=== PATIENT | male | born 1975 | race Hispanic/Latino ===

== ENCOUNTER 2020-09-03 11:26 | Inpatient (IN) | payer SELFPAY ==
[2020-09-03] MEDS ORDERED: Dexamethasone 10 MG/ML VIAL ONE (12:31)
[2020-09-03] MEDS ORDERED: Acetaminophen 325 MG TAB ONE (12:31)
[2020-09-03] MEDS ORDERED: Cefepime 2 GM VIAL ONE (12:31)
[2020-09-03 12:39] LABS: #Lymphocytes 0.3 thou/uL (1.20-3.40); #Monocytes 0.4 thou/uL (0.11-0.59); #Neutrophils 7.4 thou/uL (1.40-6.50); %Eosinophils 0.1 % (0.0-10.0); %Lymphocytes 4.2 % (21.0-51.0); %Monocytes 4.9 % (0.0-10.0); %Neutrophils 90.8 % (42.0-75.0); Hemoglobin 15.2 g/dL (14.0-18.0); Mean Corpuscular HGB CONC 33.7 g/dL (32.0-36.0); Mean Corpuscular Hemoglobin 28.9 pg (27.0-31.0); Mean Corpuscular Volume 85.8 fL (78.0-98.0); Mean Platelet Volume 8.9 fL (7.4-10.4); Platelet Count 170 thou/uL (130-400); RBC Distribution Width 12.4 % (11.5-14.5); Red Blood Cell (RBC) Count 5.27 mill/uL (4.70-6.10); White Blood Cell (WBC) Count 8.2 thou/uL (4.8-10.8)
[2020-09-03 12:56] LABS: Anion Gap 14 mmol/L (10-20); BUN (Urea Nitrogen) 6 mg/dL (8.9-20.6); Bilirubin, Total 0.8 mg/dL (0.2-1.2); Calc. Creatinine Clearance 0 mL/min (70-130); Calcium 8.3 mg/dL (7.8-10.44); Carbon Dioxide 23 mmol/L (22-29); Chloride 98 mmol/L (98-107); Glucose 127 mg/dL (70-105); Potassium 3.8 mmol/L (3.5-5.1); Protein, Total 7.2 g/dL (6.0-8.3); Sodium 131 mmol/L (136-145)
[2020-09-03 12:57] LABS: ALT (SGPT) 140 U/L (8-55); AST (SGOT) 185 U/L (5-34); Albumin 3.8 g/dL (3.5-5.0); Alkaline Phosphatase 93 U/L (40-110); Globulin 3.4 g/dL (2.4-3.5)
[2020-09-03] MEDS ORDERED: VANCOMYCIN 2 GRAM/400 ML BAG 2 GM in Premix Bag 1 BAG IVPB SCH (13:00)
[2020-09-03] MEDS ORDERED: Ondansetron ODT 4 MG TAB PO PRN (14:20)
[2020-09-03] MEDS ORDERED: Ondansetron PF 4 MG/2 ML Vial IVP PRN (14:20)
[2020-09-03] MEDS ORDERED: Acetaminophen 650 MG Suppository PR PRN (14:20)
[2020-09-03] MEDS ORDERED: Enoxaparin Sodium 40 MG/0.4 ML SYRINGE SC SCH (14:30)
[2020-09-03 14:41] LABS: CRP (Inflammatory) 12.11 mg/dL (= or < 0.5); Magnesium 1.9 mg/dL (1.6-2.6)
[2020-09-03 14:47] LABS: SARS-CoV-2 NAA Rapid Test DETECTED (NotDetected)
[2020-09-03] MEDS ORDERED: REMDESIVIR 200 MG in Sodium Chloride 0.9% 250 ML 210 ML IV SCH (16:00)
[2020-09-03] MEDS ORDERED: cefTRIAXone\\ROCEPHIN 1 GM in Sodium Chloride 0.9% 100 ML IVPB SCH (16:00)
[2020-09-03] MEDS ORDERED: Azithromycin 500 MG in Sodium Chloride 0.9% 250 ML 250 ML IVPB SCH (16:00)
[2020-09-03] MEDS ORDERED: Enoxaparin Sodium 40 MG/0.4 ML SYRINGE ONE (18:12)
[2020-09-03] MEDS ORDERED: cefTRIAXone\\ROCEPHIN 1 GM VIAL ONE (18:12)
[2020-09-03] MEDS ORDERED: Azithromycin 500 MG VIAL ONE (18:57)
[2020-09-03 20:01] LABS: Actual Bicarbonate (HCO3a) 19.8 mEq/L (22-28); Base Excess (BEa) -3.1 mEq/L (-2.0 to +3.0); CO2 Tension 30.3 mmHg (35.0-45.0); O2 Tension (PaO2), arterial 49.4 mmHg (80.0-100.0); pH, Arterial 7.43 (7.35-7.45)
[2020-09-03 20:02] LABS: Carboxyhemoglobin (COHb) 0.2 gm% (0.0-3.0); Hemoglobin (Hb) 15.2 g/dL (14.0-18.0)
[2020-09-03 20:03] LABS: ALV-art Gradient 112.365 mmHg (0-20); Analyzer IN Cardio ER; Calcium, Ionized (arterial) 1.09 mmol/L (1.12-1.30); Potassium - ABG Lab 4.04 mmol/L (3.70-5.30); Puncture Site LRA
[2020-09-04] MEDS ORDERED: Adenosine 6 MG/2 ML VIAL ONE (00:10)
[2020-09-04 06:50] LABS: Anion Gap 13 mmol/L (10-20); BUN (Urea Nitrogen) 12 mg/dL (8.9-20.6); Calc. Creatinine Clearance 0 mL/min (70-130); Calcium 8.3 mg/dL (7.8-10.44); Carbon Dioxide 20 mmol/L (22-29); Chloride 109 mmol/L (98-107); Glucose 137 mg/dL (70-105); Potassium 3.8 mmol/L (3.5-5.1); Sodium 138 mmol/L (136-145)
[2020-09-04 06:52] LABS: Band 6 % (5-11); Hemoglobin 14.5 g/dL (14.0-18.0); Lymphocytes 7 % (21-51); MDiff Complete? YES; Mean Corpuscular HGB CONC 34.4 g/dL (32.0-36.0); Mean Corpuscular Hemoglobin 29.8 pg (27.0-31.0); Mean Corpuscular Volume 86.4 fL (78.0-98.0); Mean Platelet Volume 8.5 fL (7.4-10.4); Monocytes 11 % (0-10); Neutrophil 76 % (42-75); Platelet Count 179 thou/uL (130-400); Platelet Morphology Comment Appears Adequate; RBC Distribution Width 12.4 % (11.5-14.5); RBC Morphology Normal; Red Blood Cell (RBC) Count 4.86 mill/uL (4.70-6.10); White Blood Cell (WBC) Count 5.3 thou/uL (4.8-10.8)
[2020-09-04] MEDS ORDERED: Enoxaparin Sodium 40 MG/0.4 ML SYRINGE SC SCH (09:00)
[2020-09-04] MEDS: Ascorbic Acid 500 mg Chewable Tablet PO SCH (09:46)
[2020-09-04] MEDS: Zinc Sulfate 220 MG CAP PO SCH (09:46)
[2020-09-04] MEDS: Dexamethasone 10 MG/ML VIAL SLOW IVP SCH (09:47)
[2020-09-04] MEDS: Guaifenesin DM 100-10/5 ML UDCUP PO PRN ×2 (09:49→21:29)
[2020-09-04 10:19] LABS: ALT (SGPT) 160 U/L (8-55); AST (SGOT) 184 U/L (5-34); Albumin 3.4 g/dL (3.5-5.0); Alkaline Phosphatase 83 U/L (40-110); Bilirubin, Direct 0.3 mg/dL (0.1-0.3); Bilirubin, Total 0.6 mg/dL (0.2-1.2); Protein, Total 6.5 g/dL (6.0-8.3)
[2020-09-04] MEDS ORDERED: TOCILIZUMAB IVPB PRN (11:08)
[2020-09-04] MEDS: REMDESIVIR 100 MG in Sodium Chloride 0.9% 250 ML 230 ML IV SCH (16:44)
[2020-09-04] MEDS: Enoxaparin Sodium 40 MG/0.4 ML SYRINGE SC SCH (21:29)
[2020-09-05] MEDS: Guaifenesin DM 100-10/5 ML UDCUP PO PRN ×3 (05:47→21:13)
[2020-09-05] MEDS ORDERED: Dexamethasone 10 MG/ML VIAL SLOW IVP SCH (09:31)
[2020-09-05] MEDS: Enoxaparin Sodium 40 MG/0.4 ML SYRINGE SC SCH ×2 (09:39→21:12)
[2020-09-05] MEDS: Zinc Sulfate 220 MG CAP PO SCH (09:40)
[2020-09-05] MEDS: Ascorbic Acid 500 mg Chewable Tablet PO SCH (09:40)
[2020-09-05] MEDS: Dexamethasone 4 mg/ml Vial SLOW IVP SCH (09:42)
[2020-09-05] MEDS: Dexamethasone 10 MG/ML VIAL SLOW IVP SCH (09:44)
[2020-09-05] MEDS: REMDESIVIR 100 MG in Sodium Chloride 0.9% 250 ML 230 ML IV SCH (16:35)
[2020-09-06] MEDS: Guaifenesin DM 100-10/5 ML UDCUP PO PRN ×2 (01:37→09:15)
[2020-09-06 04:06] LABS: #Lymphocytes 0.6 thou/uL (1.20-3.40); #Monocytes 0.8 thou/uL (0.11-0.59); #Neutrophils 10.2 thou/uL (1.40-6.50); %Basophils 0.2 % (0.0-1.0); %Eosinophils 0.1 % (0.0-10.0); %Lymphocytes 5.4 % (21.0-51.0); %Monocytes 7.1 % (0.0-10.0); %Neutrophils 87.2 % (42.0-75.0); Hemoglobin 14.2 g/dL (14.0-18.0); Mean Corpuscular HGB CONC 32.4 g/dL (32.0-36.0); Mean Corpuscular Hemoglobin 28.2 pg (27.0-31.0); Mean Corpuscular Volume 86.9 fL (78.0-98.0); Mean Platelet Volume 8.4 fL (7.4-10.4); Platelet Count 274 thou/uL (130-400); RBC Distribution Width 12.4 % (11.5-14.5); Red Blood Cell (RBC) Count 5.05 mill/uL (4.70-6.10); White Blood Cell (WBC) Count 11.7 thou/uL (4.8-10.8)
[2020-09-06 04:26] LABS: ALT (SGPT) 136 U/L (8-55); AST (SGOT) 77 U/L (5-34); Albumin 3.2 g/dL (3.5-5.0); Alkaline Phosphatase 72 U/L (40-110); Anion Gap 14 mmol/L (10-20); BUN (Urea Nitrogen) 20 mg/dL (8.9-20.6); Bilirubin, Total 0.7 mg/dL (0.2-1.2); CRP (Inflammatory) 2.77 mg/dL (= or < 0.5); Calc. Creatinine Clearance 167 mL/min (70-130); Calcium 7.9 mg/dL (7.8-10.44); Carbon Dioxide 19 mmol/L (22-29); Chloride 108 mmol/L (98-107); Globulin 2.8 g/dL (2.4-3.5); Glucose 127 mg/dL (70-105); Potassium 3.7 mmol/L (3.5-5.1); Sodium 137 mmol/L (136-145)
[2020-09-06] MEDS: Benzonatate 100 MG CAP PO PRN ×2 (05:16→20:26)
[2020-09-06] MEDS: Zinc Sulfate 220 MG CAP PO SCH (09:15)
[2020-09-06] MEDS: Ascorbic Acid 500 mg Chewable Tablet PO SCH (09:15)
[2020-09-06] MEDS: Enoxaparin Sodium 40 MG/0.4 ML SYRINGE SC SCH ×2 (09:15→20:26)
[2020-09-06] MEDS: Dexamethasone 4 mg/ml Vial SLOW IVP SCH (09:16)
[2020-09-06] MEDS: Morphine 2 MG/ML VIAL SLOW IVP PRN (14:40)
[2020-09-06] MEDS: REMDESIVIR 100 MG in Sodium Chloride 0.9% 250 ML 230 ML IV SCH (16:04)
[2020-09-06] MEDS: ALPRAZolam 0.25 MG TAB PO PRN (20:26)
[2020-09-06] MEDS: Famotidine 20 MG TAB PO SCH (20:26)
[2020-09-07] MEDS: Guaifenesin DM 100-10/5 ML UDCUP PO PRN (00:11)
[2020-09-07] MEDS: Morphine 2 MG/ML VIAL SLOW IVP PRN ×3 (00:11→15:55)
[2020-09-07] MEDS: Benzonatate 100 MG CAP PO PRN ×3 (03:34→21:30)
[2020-09-07] MEDS: Acetaminophen 325 MG TAB PO PRN (03:34)
[2020-09-07 03:39] LABS: Hemoglobin 14.9 g/dL (14.0-18.0); Mean Corpuscular HGB CONC 33.8 g/dL (32.0-36.0); Mean Corpuscular Hemoglobin 29.1 pg (27.0-31.0); Mean Platelet Volume 8.7 fL (7.4-10.4); Platelet Count 190 thou/uL (130-400); RBC Distribution Width 12.2 % (11.5-14.5); White Blood Cell (WBC) Count 13.2 thou/uL (4.8-10.8)
[2020-09-07 03:55] LABS: Band 1 % (5-11); Lymphocytes 3 % (21-51); MDiff Complete? YES; Monocytes 2 % (0-10); Neutrophil 94 % (42-75); Platelet Morphology Comment Appears Adequate
[2020-09-07 03:58] LABS: ALT (SGPT) 137 U/L (8-55); AST (SGOT) 63 U/L (5-34); Albumin 3.1 g/dL (3.5-5.0); Alkaline Phosphatase 75 U/L (40-110); Anion Gap 14 mmol/L (10-20); BUN (Urea Nitrogen) 17 mg/dL (8.9-20.6); Bilirubin, Total 0.8 mg/dL (0.2-1.2); CRP (Inflammatory) 4.26 mg/dL (= or < 0.5); Calc. Creatinine Clearance 177 mL/min (70-130); Calcium 7.9 mg/dL (7.8-10.44); Carbon Dioxide 17 mmol/L (22-29); Chloride 107 mmol/L (98-107); Glucose 88 mg/dL (70-105); Potassium 3.9 mmol/L (3.5-5.1); Protein, Total 6.1 g/dL (6.0-8.3); Sodium 134 mmol/L (136-145)
[2020-09-07 08:51] LABS: Actual Bicarbonate (HCO3v) 20 mEq/L (22-28); Base Excess -1.1 mEq/L (-2.0 to +3.0); Chloride (VBG) 105 mmol/L (98-106); Hemoglobin (Hb) 16.3 g/dL (13.2-17.3); Potassium (VBG) 3.44 mmol/L (3.70-5.30); Sodium 132.9 mmol/L (133-146); pH (venous) 7.51 (7.32-7.43)
[2020-09-07] MEDS: Zinc Sulfate 220 MG CAP PO SCH (08:52)
[2020-09-07] MEDS: Ascorbic Acid 500 mg Chewable Tablet PO SCH (08:52)
[2020-09-07] MEDS: Enoxaparin Sodium 40 MG/0.4 ML SYRINGE SC SCH ×2 (08:52→21:30)
[2020-09-07] MEDS: Famotidine 20 MG TAB PO SCH ×2 (08:52→21:30)
[2020-09-07 08:59] LABS: #Lymphocytes 0.9 thou/uL (1.20-3.40); #Monocytes 0.3 thou/uL (0.11-0.59); #Neutrophils 11.5 thou/uL (1.40-6.50); %Basophils 0.1 % (0.0-1.0); %Eosinophils 0.3 % (0.0-10.0); %Lymphocytes 7.2 % (21.0-51.0); %Monocytes 2.2 % (0.0-10.0); %Neutrophils 90.3 % (42.0-75.0); Mean Corpuscular HGB CONC 33.6 g/dL (32.0-36.0); Mean Corpuscular Hemoglobin 28.8 pg (27.0-31.0); Mean Corpuscular Volume 85.8 fL (78.0-98.0); Mean Platelet Volume 8.4 fL (7.4-10.4); Platelet Count 311 thou/uL (130-400); RBC Distribution Width 12.2 % (11.5-14.5); Red Blood Cell (RBC) Count 5.22 mill/uL (4.70-6.10); White Blood Cell (WBC) Count 12.7 thou/uL (4.8-10.8)
[2020-09-07] MEDS: Dexamethasone 4 MG TAB PO SCH (10:25)
[2020-09-07] MEDS: REMDESIVIR 100 MG in Sodium Chloride 0.9% 250 ML 230 ML IV SCH (15:55)
[2020-09-07] MEDS: ALPRAZolam 0.25 MG TAB PO PRN (21:30)
[2020-09-08 04:19] LABS: Band 5 % (5-11); Lymphocytes 11 % (21-51); MDiff Complete? YES; Mean Corpuscular HGB CONC 33.7 g/dL (32.0-36.0); Mean Corpuscular Volume 86.2 fL (78.0-98.0); Mean Platelet Volume 8.4 fL (7.4-10.4); Monocytes 6 % (0-10); Neutrophil 78 % (42-75); Platelet Count 299 thou/uL (130-400); Platelet Morphology Comment Appears Adequate; RBC Distribution Width 12.1 % (11.5-14.5); RBC Morphology Normal; Red Blood Cell (RBC) Count 4.82 mill/uL (4.70-6.10); White Blood Cell (WBC) Count 11.8 thou/uL (4.8-10.8)
[2020-09-08 04:20] LABS: ALT (SGPT) 102 U/L (8-55); AST (SGOT) 37 U/L (5-34); Albumin 3.1 g/dL (3.5-5.0); Alkaline Phosphatase 75 U/L (40-110); Anion Gap 13 mmol/L (10-20); BUN (Urea Nitrogen) 17 mg/dL (8.9-20.6); Bilirubin, Total 0.8 mg/dL (0.2-1.2); CRP (Inflammatory) 11.24 mg/dL (= or < 0.5); Calc. Creatinine Clearance 170 mL/min (70-130); Calcium 7.9 mg/dL (7.8-10.44); Carbon Dioxide 19 mmol/L (22-29); Chloride 106 mmol/L (98-107); Globulin 2.8 g/dL (2.4-3.5); Glucose 165 mg/dL (70-105); Protein, Total 5.9 g/dL (6.0-8.3); Sodium 134 mmol/L (136-145)
[2020-09-08] MEDS: Guaifenesin DM 100-10/5 ML UDCUP PO PRN (09:31)
[2020-09-08] MEDS: Dexamethasone 4 MG TAB PO SCH (09:31)
[2020-09-08] MEDS: Furosemide 20 MG/2 ML VIAL SLOW IVP SCH (09:31)
[2020-09-08] MEDS: Zinc Sulfate 220 MG CAP PO SCH (09:31)
[2020-09-08] MEDS: Famotidine 20 MG TAB PO SCH ×2 (09:32→20:56)
[2020-09-08] MEDS: Ascorbic Acid 500 mg Chewable Tablet PO SCH (09:32)
[2020-09-08] MEDS: Enoxaparin Sodium 40 MG/0.4 ML SYRINGE SC SCH ×2 (09:32→20:56)
[2020-09-08] MEDS: ALPRAZolam 0.25 MG TAB PO PRN (22:04)
[2020-09-08] MEDS: Morphine 2 MG/ML VIAL SLOW IVP PRN (22:30)
[2020-09-09 04:37] LABS: ALT (SGPT) 76 U/L (8-55); AST (SGOT) 23 U/L (5-34); Albumin 3.1 g/dL (3.5-5.0); Alkaline Phosphatase 72 U/L (40-110); Anion Gap 12 mmol/L (10-20); BUN (Urea Nitrogen) 19 mg/dL (8.9-20.6); Bilirubin, Total 0.7 mg/dL (0.2-1.2); CRP (Inflammatory) 5.68 mg/dL (= or < 0.5); Calc. Creatinine Clearance 161 mL/min (70-130); Calcium 8.2 mg/dL (7.8-10.44); Carbon Dioxide 22 mmol/L (22-29); Chloride 106 mmol/L (98-107); Globulin 2.8 g/dL (2.4-3.5); Glucose 165 mg/dL (70-105); Potassium 4.5 mmol/L (3.5-5.1); Protein, Total 5.9 g/dL (6.0-8.3); Sodium 135 mmol/L (136-145)
[2020-09-09 05:06] LABS: Hemoglobin 14.2 g/dL (14.0-18.0); Lymphocytes 5 % (21-51); MDiff Complete? YES; Mean Corpuscular HGB CONC 34.4 g/dL (32.0-36.0); Mean Corpuscular Hemoglobin 29.7 pg (27.0-31.0); Mean Corpuscular Volume 86.4 fL (78.0-98.0); Mean Platelet Volume 8.9 fL (7.4-10.4); Monocytes 5 % (0-10); Neutrophil 90 % (42-75); Platelet Count 323 thou/uL (130-400); Platelet Morphology Comment Appears Adequate; RBC Distribution Width 12.1 % (11.5-14.5); RBC Morphology Normal; Red Blood Cell (RBC) Count 4.77 mill/uL (4.70-6.10); White Blood Cell (WBC) Count 18.4 thou/uL (4.8-10.8)
[2020-09-09] MEDS: Dexamethasone 4 MG TAB PO SCH (08:46)
[2020-09-09] MEDS: Benzonatate 100 MG CAP PO PRN (08:46)
[2020-09-09] MEDS: Ascorbic Acid 500 mg Chewable Tablet PO SCH (08:46)
[2020-09-09] MEDS: Famotidine 20 MG TAB PO SCH ×2 (08:46→20:43)
[2020-09-09] MEDS: Zinc Sulfate 220 MG CAP PO SCH (08:46)
[2020-09-09] MEDS: Furosemide 20 MG/2 ML VIAL SLOW IVP SCH (08:47)
[2020-09-09] MEDS: Enoxaparin Sodium 40 MG/0.4 ML SYRINGE SC SCH ×2 (08:47→20:43)
[2020-09-09] MEDS ORDERED: Polyethylene Glycol 3350 17 GM Packet PO PRN (12:47)
[2020-09-09] MEDS: ALPRAZolam 0.25 MG TAB PO PRN (21:07)
[2020-09-09] MEDS: Morphine 2 MG/ML VIAL SLOW IVP PRN (23:20)
[2020-09-10 04:32] LABS: ALT (SGPT) 64 U/L (8-55); AST (SGOT) 20 U/L (5-34); Alkaline Phosphatase 75 U/L (40-110); Anion Gap 12 mmol/L (10-20); BUN (Urea Nitrogen) 21 mg/dL (8.9-20.6); Bilirubin, Total 0.7 mg/dL (0.2-1.2); Calc. Creatinine Clearance 154 mL/min (70-130); Calcium 8.1 mg/dL (7.8-10.44); Carbon Dioxide 22 mmol/L (22-29); Chloride 103 mmol/L (98-107); Globulin 2.9 g/dL (2.4-3.5); Glucose 159 mg/dL (70-105); Potassium 4.4 mmol/L (3.5-5.1); Protein, Total 5.9 g/dL (6.0-8.3); Sodium 133 mmol/L (136-145)
[2020-09-10 04:40] LABS: Hemoglobin 14.7 g/dL (14.0-18.0); Mean Corpuscular HGB CONC 34.4 g/dL (32.0-36.0); Mean Corpuscular Hemoglobin 29.9 pg (27.0-31.0); Mean Corpuscular Volume 86.7 fL (78.0-98.0); Mean Platelet Volume 8.9 fL (7.4-10.4); Platelet Count 359 thou/uL (130-400); RBC Distribution Width 12.2 % (11.5-14.5); Red Blood Cell (RBC) Count 4.92 mill/uL (4.70-6.10); White Blood Cell (WBC) Count 19.2 thou/uL (4.8-10.8)
[2020-09-10 05:30] LABS: Band 9 % (5-11); Lymphocytes 6 % (21-51); MDiff Complete? YES; Monocytes 5 % (0-10); Neutrophil 80 % (42-75)
[2020-09-10] MEDS: Ascorbic Acid 500 mg Chewable Tablet PO SCH (08:41)
[2020-09-10] MEDS: Enoxaparin Sodium 40 MG/0.4 ML SYRINGE SC SCH ×2 (08:42→20:39)
[2020-09-10] MEDS: Furosemide 20 MG/2 ML VIAL SLOW IVP SCH (08:42)
[2020-09-10] MEDS: Dexamethasone 4 MG TAB PO SCH (08:42)
[2020-09-10] MEDS: Zinc Sulfate 220 MG CAP PO SCH (08:42)
[2020-09-10] MEDS: Famotidine 20 MG TAB PO SCH ×2 (08:42→20:39)
[2020-09-11 04:04] LABS: #Lymphocytes 0.8 thou/uL (1.20-3.40); #Monocytes 1.4 thou/uL (0.11-0.59); #Neutrophils 15.7 thou/uL (1.40-6.50); %Basophils 0.1 % (0.0-1.0); %Eosinophils 0.2 % (0.0-10.0); %Lymphocytes 4.2 % (21.0-51.0); %Neutrophils 87.5 % (42.0-75.0); Hemoglobin 15.1 g/dL (14.0-18.0); Mean Corpuscular HGB CONC 33.6 g/dL (32.0-36.0); Mean Corpuscular Hemoglobin 29.1 pg (27.0-31.0); Mean Corpuscular Volume 86.6 fL (78.0-98.0); Mean Platelet Volume 8.4 fL (7.4-10.4); Platelet Count 358 thou/uL (130-400); RBC Distribution Width 12.3 % (11.5-14.5); Red Blood Cell (RBC) Count 5.18 mill/uL (4.70-6.10)
[2020-09-11 04:28] LABS: ALT (SGPT) 76 U/L (8-55); AST (SGOT) 29 U/L (5-34); Albumin 3.1 g/dL (3.5-5.0); Alkaline Phosphatase 74 U/L (40-110); Anion Gap 11 mmol/L (10-20); BUN (Urea Nitrogen) 21 mg/dL (8.9-20.6); Bilirubin, Total 0.8 mg/dL (0.2-1.2); Calc. Creatinine Clearance 163 mL/min (70-130); Calcium 8.1 mg/dL (7.8-10.44); Carbon Dioxide 20 mmol/L (22-29); Chloride 104 mmol/L (98-107); Globulin 2.8 g/dL (2.4-3.5); Glucose 138 mg/dL (70-105); Potassium 4.3 mmol/L (3.5-5.1); Protein, Total 5.9 g/dL (6.0-8.3); Sodium 131 mmol/L (136-145)
[2020-09-11] MEDS: Zinc Sulfate 220 MG CAP PO SCH (09:43)
[2020-09-11] MEDS: Enoxaparin Sodium 40 MG/0.4 ML SYRINGE SC SCH ×2 (09:43→20:43)
[2020-09-11] MEDS: Famotidine 20 MG TAB PO SCH ×2 (09:44→20:43)
[2020-09-11] MEDS: Ascorbic Acid 500 mg Chewable Tablet PO SCH (09:44)
[2020-09-11] MEDS: Dexamethasone 4 MG TAB PO SCH (09:44)
[2020-09-12] MEDS: Ascorbic Acid 500 mg Chewable Tablet PO SCH (08:00)
[2020-09-12] MEDS: Famotidine 20 MG TAB PO SCH ×2 (08:01→20:39)
[2020-09-12] MEDS: Zinc Sulfate 220 MG CAP PO SCH (08:01)
[2020-09-12] MEDS: Enoxaparin Sodium 40 MG/0.4 ML SYRINGE SC SCH ×2 (08:01→20:39)
[2020-09-12] MEDS: Dexamethasone 4 MG TAB PO SCH (08:01)
[2020-09-12 09:59] LABS: Band 8 % (5-11); Hemoglobin 16.7 g/dL (14.0-18.0); Lymphocytes 4 % (21-51); MDiff Complete? YES; Mean Corpuscular HGB CONC 34.5 g/dL (32.0-36.0); Mean Corpuscular Hemoglobin 29.9 pg (27.0-31.0); Mean Corpuscular Volume 86.8 fL (78.0-98.0); Mean Platelet Volume 8.8 fL (7.4-10.4); Metamyelocyte 2 % (0-0); Monocytes 8 % (0-10); Neutrophil 78 % (42-75); Platelet Count 336 thou/uL (130-400); RBC Distribution Width 12.4 % (11.5-14.5); Red Blood Cell (RBC) Count 5.57 mill/uL (4.70-6.10); White Blood Cell (WBC) Count 23.5 thou/uL (4.8-10.8)
[2020-09-13] MEDS: Benzonatate 100 MG CAP PO PRN ×2 (04:51→21:35)
[2020-09-13 08:06] LABS: Band 2 % (5-11); Hemoglobin 15.9 g/dL (14.0-18.0); Lymphocytes 10 % (21-51); MDiff Complete? YES; Mean Corpuscular HGB CONC 33.9 g/dL (32.0-36.0); Mean Corpuscular Hemoglobin 29.4 pg (27.0-31.0); Mean Corpuscular Volume 86.7 fL (78.0-98.0); Mean Platelet Volume 8.8 fL (7.4-10.4); Monocytes 3 % (0-10); Neutrophil 84 % (42-75); Platelet Count 321 thou/uL (130-400); RBC Distribution Width 12.4 % (11.5-14.5); RBC Morphology Normal; Reactive Lymphocytes 1 % (0-10); Red Blood Cell (RBC) Count 5.41 mill/uL (4.70-6.10); White Blood Cell (WBC) Count 22.8 thou/uL (4.8-10.8)
[2020-09-13] MEDS: Dexamethasone 4 MG TAB PO SCH (08:18)
[2020-09-13] MEDS: Zinc Sulfate 220 MG CAP PO SCH (08:18)
[2020-09-13] MEDS: Famotidine 20 MG TAB PO SCH ×2 (08:19→21:35)
[2020-09-13] MEDS: Ascorbic Acid 500 mg Chewable Tablet PO SCH (08:19)
[2020-09-13] MEDS: Enoxaparin Sodium 40 MG/0.4 ML SYRINGE SC SCH ×2 (08:19→21:35)
[2020-09-13] MEDS: Guaifenesin DM 100-10/5 ML UDCUP PO PRN ×2 (08:25→21:35)
[2020-09-13 08:52] LABS: Hemoglobin 16.4 g/dL (14.0-18.0); Mean Corpuscular HGB CONC 33.2 g/dL (32.0-36.0); Mean Corpuscular Hemoglobin 29.1 pg (27.0-31.0); Mean Corpuscular Volume 87.6 fL (78.0-98.0); Mean Platelet Volume 8.7 fL (7.4-10.4); Platelet Count 309 thou/uL (130-400); RBC Distribution Width 12.4 % (11.5-14.5); Red Blood Cell (RBC) Count 5.64 mill/uL (4.70-6.10)
[2020-09-13 09:03] LABS: Anion Gap 11 mmol/L (10-20); BUN (Urea Nitrogen) 17 mg/dL (8.9-20.6); CRP (Inflammatory) Less than 0.50 mg/dL (= or < 0.5); Calc. Creatinine Clearance 147 mL/min (70-130); Calcium 8.4 mg/dL (7.8-10.44); Carbon Dioxide 21 mmol/L (22-29); Chloride 103 mmol/L (98-107); Glucose 88 mg/dL (70-105); Magnesium 2.4 mg/dL (1.6-2.6); Potassium 4.3 mmol/L (3.5-5.1); Sodium 131 mmol/L (136-145)
[2020-09-13 13:31] LABS: Band 3 % (5-11); Lymphocytes 4 % (21-51); Metamyelocyte 1 % (0-0); Monocytes 1 % (0-10); Neutrophil 86 % (42-75); Platelet Morphology Comment Appears Adequate; Reactive Lymphocytes 5 % (0-10)
[2020-09-13 13:32] LABS: MDiff Complete? YES; RBC Morphology Normal
[2020-09-13] MEDS ORDERED: Cholecalciferol (Vitamin D3) 400 UNITS TAB PO SCH ×2 (13:34→13:45)
[2020-09-13] MEDS: Acetaminophen 325 MG TAB PO PRN (21:39)
[2020-09-14 05:50] LABS: #Eosinphils 0.1 thou/uL (0.0-0.7); #Lymphocytes 1.2 thou/uL (1.20-3.40); #Monocytes 1.9 thou/uL (0.11-0.59); #Neutrophils 21.4 thou/uL (1.40-6.50); %Basophils 0.1 % (0.0-1.0); %Eosinophils 0.3 % (0.0-10.0); %Lymphocytes 4.8 % (21.0-51.0); %Monocytes 7.7 % (0.0-10.0); %Neutrophils 87.1 % (42.0-75.0); Hemoglobin 15.7 g/dL (14.0-18.0); Mean Corpuscular HGB CONC 32.8 g/dL (32.0-36.0); Mean Corpuscular Hemoglobin 28.7 pg (27.0-31.0); Mean Corpuscular Volume 87.6 fL (78.0-98.0); Mean Platelet Volume 8.7 fL (7.4-10.4); Platelet Count 294 thou/uL (130-400); RBC Distribution Width 12.5 % (11.5-14.5); Red Blood Cell (RBC) Count 5.47 mill/uL (4.70-6.10); White Blood Cell (WBC) Count 24.5 thou/uL (4.8-10.8)
[2020-09-14] MEDS: Famotidine 20 MG TAB PO SCH ×2 (08:29→21:45)
[2020-09-14] MEDS: Ascorbic Acid 500 mg Chewable Tablet PO SCH (08:29)
[2020-09-14] MEDS: Dexamethasone 4 MG TAB PO SCH (08:29)
[2020-09-14] MEDS: Cholecalciferol (Vitamin D3) 400 UNITS TAB PO SCH (08:29)
[2020-09-14] MEDS: Zinc Sulfate 220 MG CAP PO SCH (08:30)
[2020-09-14] MEDS: Enoxaparin Sodium 40 MG/0.4 ML SYRINGE SC SCH ×2 (08:30→21:45)
[2020-09-14] MEDS: Benzonatate 100 MG CAP PO PRN (21:45)
[2020-09-14] MEDS: Guaifenesin DM 100-10/5 ML UDCUP PO PRN (21:45)
[2020-09-14] MEDS: Acetaminophen 325 MG TAB PO PRN (21:45)
[2020-09-15 06:37] LABS: #Basophils 0.1 thou/uL (0.0-0.2); #Eosinphils 0.1 thou/uL (0.0-0.7); #Lymphocytes 1.4 thou/uL (1.20-3.40); #Monocytes 1.8 thou/uL (0.11-0.59); #Neutrophils 21.9 thou/uL (1.40-6.50); %Basophils 0.4 % (0.0-1.0); %Eosinophils 0.4 % (0.0-10.0); %Lymphocytes 5.4 % (21.0-51.0); %Monocytes 7.1 % (0.0-10.0); %Neutrophils 86.8 % (42.0-75.0); Hemoglobin 15.5 g/dL (14.0-18.0); Mean Corpuscular HGB CONC 32.7 g/dL (32.0-36.0); Mean Corpuscular Hemoglobin 28.5 pg (27.0-31.0); Mean Corpuscular Volume 87.3 fL (78.0-98.0); Mean Platelet Volume 8.6 fL (7.4-10.4); Platelet Count 257 thou/uL (130-400); RBC Distribution Width 12.6 % (11.5-14.5); Red Blood Cell (RBC) Count 5.45 mill/uL (4.70-6.10); White Blood Cell (WBC) Count 25.3 thou/uL (4.8-10.8)
[2020-09-15] MEDS: Dexamethasone 4 MG TAB PO SCH (08:37)
[2020-09-15] MEDS: Cholecalciferol (Vitamin D3) 400 UNITS TAB PO SCH (08:37)
[2020-09-15] MEDS: Benzonatate 100 MG CAP PO PRN ×2 (08:37→22:02)
[2020-09-15] MEDS: Zinc Sulfate 220 MG CAP PO SCH (08:38)
[2020-09-15] MEDS: Ascorbic Acid 500 mg Chewable Tablet PO SCH (08:38)
[2020-09-15] MEDS: Famotidine 20 MG TAB PO SCH ×2 (08:38→22:02)
[2020-09-15] MEDS: Enoxaparin Sodium 40 MG/0.4 ML SYRINGE SC SCH ×2 (08:38→22:02)
[2020-09-15] MEDS: Guaifenesin DM 100-10/5 ML UDCUP PO PRN (22:02)
[2020-09-15] MEDS: Acetaminophen 325 MG TAB PO PRN (22:02)
[2020-09-16 06:47] LABS: ALT (SGPT) 101 U/L (8-55); AST (SGOT) 19 U/L (5-34); Albumin 3.3 g/dL (3.5-5.0); Alkaline Phosphatase 79 U/L (40-110); Anion Gap 11 mmol/L (10-20); BUN (Urea Nitrogen) 20 mg/dL (8.9-20.6); Bilirubin, Total 0.6 mg/dL (0.2-1.2); Calc. Creatinine Clearance 0 mL/min (70-130); Calcium 8.2 mg/dL (7.8-10.44); Carbon Dioxide 26 mmol/L (22-29); Chloride 100 mmol/L (98-107); Globulin 2.5 g/dL (2.4-3.5); Glucose 107 mg/dL (70-105); Potassium 4.7 mmol/L (3.5-5.1); Protein, Total 5.8 g/dL (6.0-8.3); Sodium 132 mmol/L (136-145)
[2020-09-16] MEDS: Zinc Sulfate 220 MG CAP PO SCH (08:12)
[2020-09-16] MEDS: Famotidine 20 MG TAB PO SCH ×2 (08:12→19:51)
[2020-09-16] MEDS: Cholecalciferol (Vitamin D3) 400 UNITS TAB PO SCH (08:12)
[2020-09-16] MEDS: Ascorbic Acid 500 mg Chewable Tablet PO SCH (08:12)
[2020-09-16] MEDS: Dexamethasone 4 MG TAB PO SCH (08:13)
[2020-09-16] MEDS: Enoxaparin Sodium 40 MG/0.4 ML SYRINGE SC SCH ×2 (08:13→19:51)
[2020-09-16 10:14] LABS: Band 2 % (5-11); Hemoglobin 15.9 g/dL (14.0-18.0); Lymphocytes 4 % (21-51); MDiff Complete? YES; Mean Corpuscular HGB CONC 32.8 g/dL (32.0-36.0); Mean Corpuscular Hemoglobin 29.1 pg (27.0-31.0); Mean Corpuscular Volume 88.5 fL (78.0-98.0); Monocytes 6 % (0-10); Neutrophil 88 % (42-75); Platelet Count 257 thou/uL (130-400); Platelet Morphology Comment Appears Adequate; RBC Distribution Width 12.6 % (11.5-14.5); RBC Morphology Normal; Red Blood Cell (RBC) Count 5.48 mill/uL (4.70-6.10); White Blood Cell (WBC) Count 22.7 thou/uL (4.8-10.8)
[2020-09-16] MEDS: Guaifenesin DM 100-10/5 ML UDCUP PO PRN (19:52)
[2020-09-16] MEDS: Acetaminophen 325 MG TAB PO PRN (19:52)
[2020-09-17] MEDS: Guaifenesin DM 100-10/5 ML UDCUP PO PRN (05:15)
[2020-09-17] MEDS: Ascorbic Acid 500 mg Chewable Tablet PO SCH (08:12)
[2020-09-17] MEDS: Famotidine 20 MG TAB PO SCH ×2 (08:12→20:02)
[2020-09-17] MEDS: Cholecalciferol (Vitamin D3) 400 UNITS TAB PO SCH (08:12)
[2020-09-17] MEDS: Enoxaparin Sodium 40 MG/0.4 ML SYRINGE SC SCH ×2 (08:13→20:02)
[2020-09-17] MEDS: Zinc Sulfate 220 MG CAP PO SCH (08:13)
[2020-09-17] MEDS: Dexamethasone 4 MG TAB PO SCH (08:13)
[2020-09-18 04:37] LABS: Band 3 % (5-11); Hemoglobin 15.6 g/dL (14.0-18.0); Lymphocytes 11 % (21-51); MDiff Complete? YES; Mean Corpuscular HGB CONC 33.6 g/dL (32.0-36.0); Mean Corpuscular Hemoglobin 29.4 pg (27.0-31.0); Mean Corpuscular Volume 87.5 fL (78.0-98.0); Mean Platelet Volume 8.7 fL (7.4-10.4); Monocytes 3 % (0-10); Neutrophil 83 % (42-75); Platelet Count 240 thou/uL (130-400); Platelet Morphology Comment Appears Adequate; RBC Distribution Width 12.6 % (11.5-14.5); Red Blood Cell (RBC) Count 5.29 mill/uL (4.70-6.10); White Blood Cell (WBC) Count 21.1 thou/uL (4.8-10.8)
[2020-09-18] MEDS: Cholecalciferol (Vitamin D3) 400 UNITS TAB PO SCH (07:39)
[2020-09-18] MEDS: Enoxaparin Sodium 40 MG/0.4 ML SYRINGE SC SCH ×2 (07:39→21:01)
[2020-09-18] MEDS: Zinc Sulfate 220 MG CAP PO SCH (07:40)
[2020-09-18] MEDS: Famotidine 20 MG TAB PO SCH ×2 (07:40→21:02)
[2020-09-18] MEDS: Dexamethasone 4 MG TAB PO SCH (07:40)
[2020-09-18] MEDS: Ascorbic Acid 500 mg Chewable Tablet PO SCH (07:40)
[2020-09-18] MEDS ORDERED: Dexamethasone 4 MG TAB PO SCH ×2 (13:41→13:45)
[2020-09-19 04:14] LABS: Band 1 % (5-11); Lymphocytes 19 % (21-51); MDiff Complete? YES; Mean Corpuscular HGB CONC 33.5 g/dL (32.0-36.0); Mean Corpuscular Hemoglobin 29.1 pg (27.0-31.0); Mean Corpuscular Volume 86.9 fL (78.0-98.0); Mean Platelet Volume 8.7 fL (7.4-10.4); Monocytes 9 % (0-10); Neutrophil 67 % (42-75); Platelet Count 213 thou/uL (130-400); Platelet Morphology Comment Appears Adequate; RBC Distribution Width 12.8 % (11.5-14.5); RBC Morphology Normal; Reactive Lymphocytes 4 % (0-10); Red Blood Cell (RBC) Count 5.16 mill/uL (4.70-6.10); White Blood Cell (WBC) Count 16.4 thou/uL (4.8-10.8)
[2020-09-19] MEDS: Ascorbic Acid 500 mg Chewable Tablet PO SCH (07:22)
[2020-09-19] MEDS: Zinc Sulfate 220 MG CAP PO SCH (07:22)
[2020-09-19] MEDS: Dexamethasone 4 MG TAB PO SCH (07:22)
[2020-09-19] MEDS: Famotidine 20 MG TAB PO SCH ×2 (07:22→21:45)
[2020-09-19] MEDS: Enoxaparin Sodium 40 MG/0.4 ML SYRINGE SC SCH ×2 (07:22→21:45)
[2020-09-19] MEDS: Cholecalciferol (Vitamin D3) 400 UNITS TAB PO SCH (07:22)
[2020-09-20] MEDS: Cholecalciferol (Vitamin D3) 400 UNITS TAB PO SCH (08:49)
[2020-09-20] MEDS: Dexamethasone 4 MG TAB PO SCH (08:49)
[2020-09-20] MEDS: Famotidine 20 MG TAB PO SCH ×2 (08:49→21:00)
[2020-09-20] MEDS: Enoxaparin Sodium 40 MG/0.4 ML SYRINGE SC SCH ×2 (08:50→21:00)
[2020-09-20] MEDS: Zinc Sulfate 220 MG CAP PO SCH (08:50)
[2020-09-20] MEDS: Ascorbic Acid 500 mg Chewable Tablet PO SCH (08:50)
[2020-09-20] MEDS: Acetaminophen 325 MG TAB PO PRN (09:21)
[2020-09-20] MEDS: Bisacodyl 5 MG TAB PO PRN (09:24)
[2020-09-20] MEDS ORDERED: Dexamethasone 4 MG TAB PO SCH (10:45)
[2020-09-20] MEDS ORDERED: Enoxaparin Sodium 40 MG/0.4 ML SYRINGE ONE (20:48)
[2020-09-20] MEDS ORDERED: Famotidine 20 MG TAB ONE (20:48)
[2020-09-20] MEDS ORDERED: Melatonin 3 MG TAB ONE (20:49)
[2020-09-20] MEDS ORDERED: Melatonin 3 MG TAB PO SCH (22:15)
[2020-09-21 04:16] VITALS: BMI 28.5
[2020-09-21] MEDS: Dexamethasone 4 MG TAB PO SCH (08:54)
[2020-09-21] MEDS: Ascorbic Acid 500 mg Chewable Tablet PO SCH (08:56)
[2020-09-21] MEDS: Cholecalciferol (Vitamin D3) 400 UNITS TAB PO SCH (08:57)
[2020-09-21] MEDS: Enoxaparin Sodium 40 MG/0.4 ML SYRINGE SC SCH ×2 (08:57→21:12)
[2020-09-21] MEDS: Famotidine 20 MG TAB PO SCH ×2 (08:57→21:11)
[2020-09-21] MEDS: Zinc Sulfate 220 MG CAP PO SCH (08:57)
[2020-09-21 09:28] LABS: #Basophils 0.1 thou/uL (0.0-0.2); #Eosinphils 0.1 thou/uL (0.0-0.7); #Lymphocytes 1.9 thou/uL (1.20-3.40); #Monocytes 1.3 thou/uL (0.11-0.59); %Basophils 0.8 % (0.0-1.0); %Eosinophils 0.5 % (0.0-10.0); %Monocytes 7.3 % (0.0-10.0); %Neutrophils 80.4 % (42.0-75.0); Hemoglobin 16.3 g/dL (14.0-18.0); Mean Corpuscular HGB CONC 34.4 g/dL (32.0-36.0); Mean Corpuscular Hemoglobin 30.4 pg (27.0-31.0); Mean Corpuscular Volume 88.4 fL (78.0-98.0); Mean Platelet Volume 8.7 fL (7.4-10.4); Platelet Count 205 thou/uL (130-400); RBC Distribution Width 12.8 % (11.5-14.5); Red Blood Cell (RBC) Count 5.35 mill/uL (4.70-6.10); White Blood Cell (WBC) Count 17.4 thou/uL (4.8-10.8)
[2020-09-21] MEDS: Bisacodyl 5 MG TAB PO PRN (16:53)
[2020-09-21] MEDS: Melatonin 3 MG TAB PO SCH (21:11)
[2020-09-22] MEDS: Ascorbic Acid 500 mg Chewable Tablet PO SCH (08:34)
[2020-09-22] MEDS: Dexamethasone 4 MG TAB PO SCH ×2 (08:34→12:19)
[2020-09-22] MEDS: Cholecalciferol (Vitamin D3) 400 UNITS TAB PO SCH (08:34)
[2020-09-22] MEDS: Famotidine 20 MG TAB PO SCH ×2 (08:35→21:17)
[2020-09-22] MEDS: Enoxaparin Sodium 40 MG/0.4 ML SYRINGE SC SCH ×2 (08:35→21:17)
[2020-09-22] MEDS: Zinc Sulfate 220 MG CAP PO SCH (08:35)
[2020-09-22] MEDS: Bisacodyl 5 MG TAB PO PRN (09:59)
[2020-09-22] MEDS: Melatonin 3 MG TAB PO SCH (21:17)
[2020-09-23] MEDS: Famotidine 20 MG TAB PO SCH (08:14)
[2020-09-23] MEDS: Ascorbic Acid 500 mg Chewable Tablet PO SCH (08:14)
[2020-09-23] MEDS: Zinc Sulfate 220 MG CAP PO SCH (08:14)
[2020-09-23] MEDS: Dexamethasone 4 MG TAB PO SCH (08:14)
[2020-09-23] MEDS: Cholecalciferol (Vitamin D3) 400 UNITS TAB PO SCH (08:14)
[2020-09-23] MEDS: Enoxaparin Sodium 40 MG/0.4 ML SYRINGE SC SCH (08:15)
[2020-09-23 14:13] VITALS: BP 101/67; TEMP 97.3
== END 2020-09-23 11:53 | disposition home or self-care (01) | DRG 177 ==
LOC: ERS 11:26 → ERHOLD 13:51 → IMCU/EMU 09-04 07:27 → T4-B 09-12 15:13 → CCU 09-18 00:29 → T4-B 09-21 01:12
PROVIDERS: ADMIT Internal Medicine; ATTEND Internal Medicine
PROC: 8E0ZXY6 Isolation (ICD-10-PCS; principal; 2020-09-03)
PROC: XW033E5 Introduction of Remdesivir Anti-infective into Peripheral Vein, Percutaneous Approach, New Technology Group 5 (ICD-10-PCS; 2020-09-03)
PROC: XW033H5 Introduction of Tocilizumab into Peripheral Vein, Percutaneous Approach, New Technology Group 5 (ICD-10-PCS; 2020-09-07)
DX: U07.1 COVID-19 (principal); J12.82 Pneumonia due to coronavirus disease 2019; J96.01 Acute respiratory failure with hypoxia; A09 Infectious gastroenteritis and colitis, unspecified; E22.2 Syndrome of inappropriate secretion of antidiuretic hormone; E66.9 Obesity, unspecified; R74.01 Elevation of levels of liver transaminase levels; T38.0X5A Adverse effect of glucocorticoids and synthetic analogues, initial encounter; D72.829 Elevated white blood cell count, unspecified; Z71.3 Dietary counseling and surveillance; Z68.28 Body mass index [BMI] 28.0-28.9, adult
CPT/HCPCS: 0240U; 36415; 36600; 71045; 80048; 80053; 80076; 82728; 82805; 83605; 83735; 84145; 84484; 85025; 85379; 86140; 87040; 93005; 94660; 94760; 96365; 96366; 96367; 96375; J0153; J0456; J0692; J0696; J1100; J1650; J1940; J2270; J3262; J3370; J3490; J7050; J8540